=== PATIENT | female | born 1995 | race African-American/Black ===

== ENCOUNTER 2017-05-31 16:52 | Emergency (ER) | payer SELFPAY ==
[~2017-05-31] VITALS: Ht 162.6 cm; Wt 67.0 kg
[2017-05-31 21:18] VITALS: BP 113/69
== END 2017-05-31 21:22 | disposition home or self-care (01) ==
LOC: ER 17:43
DX: L02.214 Cutaneous abscess of groin (principal)
CPT/HCPCS: 81025; 99283